=== PATIENT | male | born 1955 | race Caucasian/White ===

== ENCOUNTER 2017-07-04 00:53 | Inpatient (IN) | payer MEDICARE, BC ==
[2017-07-04] VITALS (8 sets, daily range): BP systolic 121–224; BP diastolic 74–107; PULSE 75–116; RESP 16–28; TEMP 97.7–97.9; O2SAT 94–97
[~2017-07-04] VITALS: Ht 172.7 cm; Wt 65.9 kg
--- NOTE | 2017-07-04 01:54 | PD ---
HPI Chief Complaint: Altered Mental Status Time Seen by Provider: 01:54 Travel History International Travel<30 days: No Contact w/Intl Traveler<30days: No Traveled to known affect area: No History of Present Illness HPI The patient is a 62 year old female who presents to the [facility] emergency department with a history of difficulty sleeping and eating with erratic behavior that began approximately a week ago. The patient is accompanied to this emergency department visit by his . His reports that he is never acted like this in the past. She reports that they live in [facility] on June 16 came down to [place] suddenly. She reports that at the beginning of the month he was diagnosed with bilateral pneumonia and treated with antibiotic and prednisone. She reports that he did complete the course of antibiotic and his cough has improved, however since then he continued to be on prednisone up until a week ago when he abruptly discontinued it. She reports that he stopped taking all of his medications 2 days ago. She reports that he has a history of emphysema, peripheral arterial disease, hypertension, and hyperlipidemia. She reports that he quit smoking presently 5 years ago. She denies having any family history of psychiatric disorder. Otherwise on review of systems, she denies him having any recent fevers, neck pain, chest pain, shortness of breath, abdominal pain, vomiting, diarrhea, urinary symptoms, one-sided weakness, slurred speech, facial droop, difficulty with word finding ability, or vision changes. She reports that he has had a decreased appetite. She reports that she's taken him to the emergency department in another city this past week. He was admitted overnight and then discharged the next day with a diagnosis of dizziness. The patient's privately reports that she is fearful for his safety. She reports that he has been aggressive. Security noticed the patient acting erratically. The patient has been having delusional and paranoid thoughts. Security witnessed the patient pushes and state "you are next". [facility] Past Medical History Narrative Medical The patient's past medical history is significant for peripheral arterial disease, hypertension, hyperlipidemia, COPD, arthritis, recent diagnosis of bilateral pneumonia the beginning of the year. Past Surgical History Narrative Surgical The patient's past surgical history is significant for left hip replacement, carpal tunnel release, bilateral carotid endarterectomy Social History Alcohol Use: No Tobacco Use: No Substance Use: No Allergies-Medications (Allergen,Severity, Reaction): Coded Allergies: No Known Allergies (Unverified , 07/04/17) Reported Meds & Prescriptions Reported Meds & Active Scripts Active Reported Cefuroxime (Cefuroxime Axetil) 500 Mg Tab 500 Mg PO BID Prednisone 10 Mg Tab 10 Mg PO DAILY Pravastatin 40 Mg Tab 40 Mg PO DAILY Plavix (Clopidogrel Bisulfate) 75 Mg Tab 75 Mg PO DAILY Montelukast (Montelukast Sodium) 4 Mg Chew 8 Mg CHEW HS Lisinopril 20 Mg Tab 20 Mg PO DAILY Atrovent HFA 12.9 GM Inh (Ipratropium [place]) 17 Mcg/Actuation Aer 2 Puff INH Q6HR PRN Perforomist Neb (Formoterol Fumarate) 20 Mcg/2 Ml Neb 1 Nebule INH BID Budesonide Neb 0.25 Mg/2 Ml Neb 0.25 Mg NEB DAILY NEB Review of Systems Except as stated in HPI: all other systems reviewed are Neg General / Constitutional: No: Fever Eyes: No: Visual changes HENT: No: Headaches, Neck Stiffness, Neck Pain Cardiovascular: No: Chest Pain or Discomfort Respiratory: No: Shortness of Breath Gastrointestinal: Positive: Loss of Appetite, No: Nausea, Vomiting, Diarrhea, Abdominal Pain Genitourinary: No: Dysuria Musculoskeletal: No: Myalgias, Pain Skin: No Rash Neurologic: Positive: Change in Mentation, No: Weakness, Focal Abnormalities, Slurred Speech, Sensory Disturbance Psychiatric: Positive: Disorder of Thought, Mood Disorder, No: Depression, Suicidal Ideations, Homicidal Ideation Endocrine: No: Polydipsia Hematologic/Lymphatic: No: Easy Bruising Physical Exam Narrative General: The patient is a well-developed well-nourished male in no acute distress. Head and Neck exam: Head is normocephalic atraumatic. Eyes: EOMI, pupils are equal round and reactive to light. Nose: Midline septum with pink mucous membranes Mouth: Dentition unremarkable. Moist mucus membranes. Posterior oropharynx is not erythematous. No tonsillar hypertrophy. Uvula midline. Airway patent. Neck: No palpable lymphadenopathy. No nuchal rigidity. No thyromegaly. Cardiovascular: Regular rate and rhythm without murmurs, gallops, or rubs. Lungs: Clear to auscultation bilaterally. No wheezes, rhonchi, or rales. Abdomen: Soft, without tenderness to palpation in all 4 quadrants of the abdomen. No guarding, rebound, or rigidity. Normal bowel sounds are audible. No tenderness on palpation of McBurney's point. Negative Titus's sign. Extremities: No clubbing, cyanosis, or edema. 2+ pulses in all 4 extremities. No calf tenderness on palpation. Back: No spinous process tenderness to palpation. No costovertebral angle tenderness to palpation. Neurologic Exam: Cranial nerves 2-12 were intact on exam. Strength is 5/5 in all 4 extremities. No sensory deficits noted. The patient has pressured speech, difficulty staying on track with the conversation with tangential conversations. Skin Exam: No rash noted. Intact skin that is warm and dry. Data Data Last Documented VS Vital Signs Date Time Temp Pulse Resp B/P (MAP) Pulse Ox O2 Delivery O2 Flow Rate FiO2 07/04/17 11:05 83 18 140/81 (100) 95 07/04/17 09:39 Room Air 07/04/17 00:54 97.9 Orders Orders Electrocardiogram (07/04/17 01:55) Complete Blood Count With Diff (07/04/17 01:55) Comprehensive Metabolic Panel (07/04/17 01:55) Creatine Kinase (Cpk) (07/04/17 01:55) Ckmb (Isoenzyme) Profile (07/04/17 01:55) Troponin I (07/04/17 01:55) Prothrombin Time / Inr (Pt) (07/04/17 01:55) Act Partial Throm Time (Ptt) (07/04/17 01:55) Lipase (07/04/17 01:55) Urinalysis - C+S If Indicated (07/04/17 01:55) Magnesium (Mg) (07/04/17 01:55) Ammonia (07/04/17 01:55) Chest, Single Ap (07/04/17 01:55) Ct Brain W/O Iv Contrast(Rout) (07/04/17 01:55) Iv Access Insert/Monitor (07/04/17 01:55) Ecg Monitoring (07/04/17 01:55) Oximetry (07/04/17 01:55) Drug Screen, Random Urine (07/04/17 01:55) Alcohol (Ethanol) (07/04/17 01:55) Salicylates (Aspirin) (07/04/17 01:55) Tylenol (Acetaminophen) (07/04/17 01:55) Sodium Chlor 0.9% 1000 Ml Inj (Ns 1000 M (07/04/17 03:30) Psych Screen (07/04/17 03:23) Labetalol Inj (Trandate Inj) (07/04/17 07:00) Lisinopril (Prinivil) (07/04/17 07:00) Lorazepam (Ativan) (07/04/17 09:15) Diet Regular Basic (07/04/17 Lunch) Diet Regular Basic (07/04/17 Dinner) Admit Order (Ed Use Only) (07/04/17 ) Admit To Inpatient Psych (07/04/17 ) Code Status (07/04/17 17:52) Vital Signs (Adult) REBEKA.Q12H.E (07/04/17 17:52) Activity Oob Ad Mini (07/04/17 17:52) Level Of Observation (Psych) (07/04/17 17:52) Acetaminophen (Tylenol) (07/04/17 18:00) Magnesium Hydroxide Liq (Milk Of Magnesi (07/04/17 18:00) Al-Mag Hy-Si 40-40-4 Mg/Ml Liq (Mag-Al P (07/04/17 18:00) Basic Metabolic Panel (Bmp) (07/05/17 06:00) Thyroid Stimulating Hormone (07/05/17 06:00) Lipid Profile (07/05/17 06:00) Hemoglobin (Hgb) A1c (07/05/17 06:00) Vitamin D, 25-Hydroxy (07/05/17 06:00) Vitamin B12 (07/05/17 06:00) Labs Laboratory Tests Test 07/04/17 02:16 07/04/17 02:41 White Blood Count 6.7 TH/MM3 Red Blood Count 4.05 MIL/MM3 Hemoglobin 14.3 GM/DL Hematocrit 40.4 % Mean Corpuscular Volume 99.7 FL Mean Corpuscular Hemoglobin 35.2 PG Mean Corpuscular Hemoglobin Concent 35.3 % Red Cell Distribution Width 14.5 % Platelet Count 251 TH/MM3 Mean Platelet Volume 6.7 FL Neutrophils (%) (Auto) 73.9 % Lymphocytes (%) (Auto) 13.4 % Monocytes (%) (Auto) 9.8 % Eosinophils (%) (Auto) 2.6 % Basophils (%) (Auto) 0.3 % Neutrophils # (Auto) 5.0 TH/MM3 Lymphocytes # (Auto) 0.9 TH/MM3 Monocytes # (Auto) 0.7 TH/MM3 Eosinophils # (Auto) 0.2 TH/MM3 Basophils # (Auto) 0.0 TH/MM3 CBC Comment DIFF FINAL Differential Comment Prothrombin Time 10.6 SEC Prothromb Time International Ratio 1.0 RATIO Activated Partial Thromboplast Time 24.7 SEC Blood Urea Nitrogen 14 MG/DL Creatinine 0.99 MG/DL Random Glucose 120 MG/DL Total Protein 7.4 GM/DL Albumin 3.8 GM/DL Calcium Level 9.0 MG/DL Magnesium Level 2.0 MG/DL Alkaline Phosphatase 60 U/L Aspartate Amino Transf (AST/SGOT) 16 U/L Alanine Aminotransferase (ALT/SGPT) 20 U/L Total Bilirubin 0.9 MG/DL Sodium Level 140 MEQ/L Potassium Level 3.9 MEQ/L Chloride Level 105 MEQ/L Carbon Dioxide Level 24.2 MEQ/L Anion Gap 11 MEQ/L Estimat Glomerular Filtration Rate 77 ML/MIN Ammonia 16 MCMOL/L Total Creatine Kinase 56 U/L Troponin I LESS THAN 0.02 NG/ML Lipase 112 U/L Salicylates Level LESS THAN 1.7 MG/DL Acetaminophen Level LESS THAN 2.0 MCG/ML Ethyl Alcohol Level LESS THAN 3 MG/DL Urine Color YELLOW Urine Turbidity CLEAR Urine pH 6.0 Urine Specific [place] 1.030 Urine Protein 30 mg/dL Urine Glucose (UA) NEG mg/dL Urine Ketones 40 mg/dL Urine Occult Blood NEG Urine Nitrite NEG Urine Bilirubin NEG Urine Urobilinogen 4.0 MG/DL Urine Leukocyte Esterase NEG Urine RBC 1 /hpf Urine WBC 2 /hpf Urine Hyaline Casts 34 /lpf Urine Granular Casts 3 /lpf Urine Mucus MANY /lpf Microscopic Urinalysis Comment CULT NOT INDICATED Urine Opiates Screen NEG Urine Barbiturates Screen NEG Urine Amphetamines Screen NEG Urine Benzodiazepines Screen NEG Urine Cocaine Screen NEG Urine Cannabinoids Screen POS MDM Medical Decision Making Medical Screen Exam Complete: Yes Emergency Medical Condition: Yes Interpretation(s) Last Impressions Head CT 07/04/17 0155 Signed Impressions: Service Date/Time: Tuesday, July 04, 2017 02:51 - CONCLUSION: 1. No acute intracranial abnormalities. Negrito Nation MD Chest X-Ray 07/04/17 0155 Signed Impressions: Service Date/Time: Tuesday, July 04, 2017 02:24 - CONCLUSION: 1. No focal consolidation or effusion. Calcified granuloma right lower lobe. Negrito Nation MD Differential Diagnosis Cata unmasked by prednisone use, versus other psychiatric disorder Narrative Course During the course of the patients emergency department visit, the patients history, examination, and differential diagnosis were reviewed with the patient. The patient was placed on a children's literature professor with oximetry and frequent blood pressure monitoring. The patient had IV access obtained and blood work sent for analysis. The patient had an EKG done on arrival that shows a sinus rhythm heart rate of 92, no acute ST segment elevation or depression. QRS duration is 70 ms, QTC 377 ms. The patient was initially provided labetalol 10 mg IV for persistent hypertension, started back on lisinopril 20 mg by mouth 1, his usual blood pressure medication. The patients laboratory studies were reviewed and remarkable for a white count of 6.7, hemoglobin 14.3, platelets 251 with 73.9 neutrophil, CMP is remarkable for glucose of 120, cardiac enzymes within normal limits, lipase 112, ammonia level XVI, PT 10.6, PTT 24.7, urinalysis shows 40 ketones otherwise unremarkable. Urine drug screen is positive for cannabinoids, salicylate less than 1.7, acetaminophen less than 2, alcohol level less than 3. Radiology studies were reviewed and remarkable for a chest x-ray that shows no focal consolidation or effusion, calcified granuloma right lower lobe of the lung. CT scan of the brain shows no acute intracranial abnormality. Due to the patient's condition acute psychosis with paranoid delusions and the patient's reporting concern for his and her safety, the patient was placed under a Salas act. The patient has been medically cleared for evaluation by the psychiatric screener and psychiatrist under a Salas act. Diagnosis Primary Impression: Acute psychosis Additional Impression: Paranoid delusion Chela Ellison MD Jul 04, 2017 01:54
[2017-07-04 02:28] LABS: BASOPHIL % 0.3 % (0.0-2.0); EOSINOPHIL # 0.2 TH/MM3 (0-0.4); EOSINOPHIL % 2.6 % (0.0-4.0); HEMATOCRIT 40.4 % (39.0-51.0); HEMOGLOBIN 14.3 GM/DL (13.0-17.0); LYMPH % 13.4 % (9.0-44.0); LYMPHOCYTE # 0.9 TH/MM3 (1.0-4.8); MEAN CELL VOLUME 99.7 FL (80.0-100.0); MEAN CORPUSCULAR HEMOGLOBIN 35.2 PG (27.0-34.0); MEAN CORPUSCULAR HGB CONC 35.3 % (32.0-36.0); MEAN PLATELET VOLUME 6.7 FL (7.0-11.0); MONO % 9.8 % (0.0-8.0); MONOCYTE # 0.7 TH/MM3 (0-0.9); NEUT % 73.9 % (16.0-70.0); PLATELET COUNT 251 TH/MM3 (150-450); RED BLOOD COUNT 4.05 MIL/MM3 (4.50-5.90); RED CELL DISTRIBUTION WIDTH 14.5 % (11.6-17.2); WHITE BLOOD COUNT 6.7 TH/MM3 (4.0-11.0)
[2017-07-04] MEDS ORDERED: BUDE0.25 NEB (02:31)
[2017-07-04] MEDS ORDERED: LISI-515 PO (02:37)
[2017-07-04] MEDS ORDERED: PRED10 PO (02:37)
[2017-07-04] MEDS ORDERED: PRAV40TA2 PO (02:37)
[2017-07-04] MEDS ORDERED: CEFU1TAB20 PO (02:37)
[2017-07-04] MEDS ORDERED: IPRA17I INH (02:37)
[2017-07-04] MEDS ORDERED: FORM20NE INH (02:37)
[2017-07-04] MEDS ORDERED: PLAV75TA29 PO (02:37)
[2017-07-04] MEDS ORDERED: MONT4CHW4 CHEW (02:37)
--- NOTE | 2017-07-04 02:40 | RADRPT ---
EXAM DATE/TIME: 07/04/2017 02:24 [facility] COMPARISON: No previous studies available for comparison. INDICATIONS : Short of breath. MEDICAL HISTORY : None. SURGICAL HISTORY : None. ENCOUNTER: Initial ACUITY: 1 day PAIN SCORE: 0/10 LOCATION: Bilateral chest FINDINGS: A single view of the chest demonstrates the lungs to be symmetrically aerated without evidence of mas s, infiltrate or effusion. The cardiomediastinal contours are unremarkable. Osseous structures are intact. CONCLUSION: 1. No focal consolidation or effusion. Calcified granuloma right lower lobe. Negrito Nation MD on July 04, 2017 at 2:38 Board Certified Radiologist. This report was verified electronically.
[2017-07-04 02:48] LABS: PROTHROMBIN TIME - PATIENT 10.6 SEC (9.8-11.6)
[2017-07-04 02:52] LABS: ALBUMIN 3.8 GM/DL (3.4-5.0); ALT (GPT) 20 U/L (12-78); AST (GOT) 16 U/L (15-37); BICARBONATE 24.2 MEQ/L (21.0-32.0); BLOOD UREA NITROGEN 14 MG/DL (7-18); CHLORIDE 105 MEQ/L (98-107); CREATININE 0.99 MG/DL (0.60-1.30); GLOMERULAR FILTRATION RATE 77 ML/MIN (>89); GLUCOSE,RANDOM 120 MG/DL (74-106); SODIUM (NA) 140 MEQ/L (136-145)
[2017-07-04 02:55] LABS: ACETAMINOPHEN LESS THAN 2.0 MCG/ML (10.0-30.0); ALKALINE PHOSPHATASE 60 U/L (45-117); TOTAL BILIRUBIN ADULT 0.9 MG/DL (0.2-1.0); TOTAL PROTEIN 7.4 GM/DL (6.4-8.2); TROPONIN I LESS THAN 0.02 NG/ML (0.02-0.05)
[2017-07-04 02:59] LABS: BILIRUBIN, URINE NEG (NEG); BLOOD, URINE NEG (NEG); GLUCOSE,URINE NEG (NEG); HYALINE CAST, URINE 34 /lpf (RARE); KETONE, URINE 40 mg/dL (NEG); MUCUS URINE MANY /lpf (OCC); NITRITE,URINE NEG (NEG); URINE COLOR YELLOW (YELLW/STRAW); URINE LEUKOCYTE ESTERASE NEG (NEG)
--- NOTE | 2017-07-04 03:08 | RADRPT ---
EXAM DATE/TIME: 07/04/2017 02:51 [facility] COMPARISON: No previous studies available for comparison. INDICATIONS : Altered mental status. RADIATION DOSE: 69.15 CTDIvol (mGy) MEDICAL HISTORY : Cardiovascular disease. SURGICAL HISTORY : Coronary artery stent. ENCOUNTER: Initial ACUITY: 1 day PAIN SCALE: 0/10 LOCATION: cranial TECHNIQUE: Multiple contiguous axial images were obtained of the head. Using automated exposure control and adj ustment of the mA and/or kV according to patient size, radiation dose was kept as low as reasonably a chievable to obtain optimal diagnostic quality images. DICOM format image data is available electro nically for review and comparison. FINDINGS: CEREBRUM: The ventricles are normal for age. No evidence of midline shift, mass lesion, hemorrhage or acute in farction. No extra-axial fluid collections are seen. POSTERIOR FOSSA: The cerebellum and brainstem are intact. The 4th ventricle is midline. The cerebellopontine angle i s unremarkable. EXTRACRANIAL: The visualized portion of the orbits is intact. SKULL: The calvaria is intact. No evidence of skull fracture. CONCLUSION: 1. No acute intracranial abnormalities. Negrito Nation MD on July 04, 2017 at 3:05 Board Certified Radiologist. This report was verified electronically.
[2017-07-04] MEDS ORDERED: SODIUM CHLOR 0.9% 1000 ML INJ 1,000 ML IV ONE (03:30)
[2017-07-04] MEDS ORDERED: LABETALOL HCL 100 MG/20 ML VIAL IV PUSH ONE (07:00)
[2017-07-04] MEDS ORDERED: LISINOPRIL 20 MG TAB PO ONE (07:00)
[2017-07-04] MEDS ORDERED: LORazepam 1 MG TAB PO ONE (09:15)
--- NOTE | 2017-07-04 17:58 | PD ---
History of Present Illness Chief Complaint: Altered Mental Status Time Seen by Provider: 16:20 Travel History International Travel<30 Days: No Contact w/Intl Traveler<30days: No Known affected area: No Legal Status Legal Status: Involuntary Salas Act Signed By: Raeann MORALES Salas Act Comment: CERTIFICATE OF PROFESSIONAL INITIATING INVOLUNTARY EXAMINATION07/04/17@0315 History of Present Illness: History of Present Illness HPI The patient is a 62 year old male with no previous psychiatric history who presents to the [facility] emergency present psychiatric evaluation accompanied by his who reports that the patient has had little to no sleep in the past 4 day, not eating eating as well as behaving in erratic manner for approximately 1 week. His reports that he is never acted like this in the past. He was diagnosed with bilateral pneumonia and treated with antibiotic and prednisone at the beginning of the month and continued to be on prednisone up until a week ago when he abruptly discontinued it. She reports that he stopped taking all of his medications 2 days ago.He was seen at another the emergency department in another city this past week and was admitted overnight and then discharged the next day with a diagnosis of dizziness. The patient's privately reports that she is fearful for his safety. She reports that he has been aggressive towards her. As per ED documentation security noticed the patient acting erratically and witnessed the patient push his and state "you are next". EMR is reviewed. No previous contact with [facility] psychiatry. Current toxicology is positive for cannabinoids. The patient is seen in J pod with Louis complex case manager. He is alert and oriented male who [facility] with appropriate hygiene and grooming. He is hyperverbal with rapid speech and circumstantiality. He denies feeling depressed. His affect is labile and he starts crying during our interview. He denies suicidal or homicidal ideation and denies any hallucinations. I contacted his son at [phone]. The son is concerned over his father's safety as well as the safety of his mother he is also worried since this presents such a change in behavior for his dad. The son states that the dad has not slept in 4 nights and that yesterday he was gone 14 hours after he left the house and went to the car wash but he came back and had not in fact washes car and provided no explanation of where he had been. He also states that when he spoke with him on the phone he had extremely fast and pressured speech to the point that it was almost incomprehensible. The son would like to be involved in his care and is ready to drive down from [place] to provide support to his father. I PFSH Past Medical History Cardiovascular Problems: Yes (PAD) High Cholesterol: Yes Diabetes: No Patient Takes Glucophage: No Diminished Hearing: Yes ([place]) Hypertension: Yes Respiratory: Yes (EMPHYSEMA) Pneumonia: Yes Tetanus Vaccination: > 5 Years Influenza Vaccination: No Past Surgical History Abdominal Surgery: Yes (1 STENT) Cardiac Surgery: Yes (STENTS X5, CARROTID X2) Joint Replacement: Yes (LEFT COMPLETE HIP) Other Surgery: Yes (CARPEL TUNNEL) Psychiatric History Psychiatric History Hx Psychiatric Treatment: NONE History of Inpatient Treatment: No Guns or firearms in home: No Social History Hx Alcohol Use: No Hx Tobacco Use: No Hx Substance Use: No Hx of Substance Use Treatment: No Family Psychiatric History Patient is from [place] and is here on vacation. He has been for 40 years. He has a GED education. He worked in heavy equipment machinery. Allergies-Medications (Allergen,Severity, Reaction): Coded Allergies: No Known Allergies (Unverified , 07/04/17) Reported Meds & Prescriptions Reported Meds & Active Scripts Active Reported Cefuroxime (Cefuroxime Axetil) 500 Mg Tab 500 Mg PO BID Prednisone 10 Mg Tab 10 Mg PO DAILY Pravastatin 40 Mg Tab 40 Mg PO DAILY Plavix (Clopidogrel Bisulfate) 75 Mg Tab 75 Mg PO DAILY Montelukast (Montelukast Sodium) 4 Mg Chew 8 Mg CHEW HS Lisinopril 20 Mg Tab 20 Mg PO DAILY Atrovent HFA 12.9 GM Inh (Ipratropium [place]) 17 Mcg/Actuation Aer 2 Puff INH Q6HR PRN Perforomist Neb (Formoterol Fumarate) 20 Mcg/2 Ml Neb 1 Nebule INH BID Budesonide Neb 0.25 Mg/2 Ml Neb 0.25 Mg NEB DAILY NEB Review of Systems Psychiatric: COMPLAINS OF: Mood changes Except as stated in HPI: all other systems reviewed are Neg Mental Status Examination Appearance: Appropriate Consciousness: Alert Orientation: x4 Motor Activity: Normal gait Speech: Rapid Language: Adequate Fund of Knowledge: Adequate Attention and Concentration: Easily Distracted Memory: Unremarkable Mood: Other (labile) Affect: Labile Thought Process & Associations: Intact, Circumstantial Thought Content: Appropriate Hallucination Type: None Delusion Type: None Suicidal Ideation: No Suicidal Plan: No Suicidal Intention: No Homicidal Ideation: No Homicidal Plan: No Homicidal Intention: No Insight: Poor Judgment: Impulsive MDM Medical Decision Making Medical Record Reviewed: Yes Assessment/Plan 62-year-old male with no previous psychiatric history who presents to the ED for psychiatric evaluation with August changed in behavior including not sleeping 4 days, change in appetite, aggressive behavior towards , and acting erratically, leaving the house for 14 hours without explanation of 4 he has been. The patient family report that he was treated at the beginning of the month for a pneumonia and was on antibiotics as well as on steroids. He stopped taking the steroids approximately a week ago. He was treated and at other hospital for similar presentation and was discharged after 24 hours. The patient is positive for cannabinoids and the son tells me that he takes edible medical marijuana. While in the ED it is reported that staff have observed him acting erratically as well as having pushed his . The patient's family voiced their concerns for his safety as well as the safety of his . At this time the patient will be admitted for further observation for safety and for stabilization. Will check Thyroid functioning. Orders Orders Electrocardiogram (07/04/17 01:55) Complete Blood Count With Diff (07/04/17 01:55) Comprehensive Metabolic Panel (07/04/17 01:55) Creatine Kinase (Cpk) (07/04/17 01:55) Ckmb (Isoenzyme) Profile (07/04/17 01:55) Troponin I (07/04/17 01:55) Prothrombin Time / Inr (Pt) (07/04/17 01:55) Act Partial Throm Time (Ptt) (07/04/17 01:55) Lipase (07/04/17 01:55) Urinalysis - C+S If Indicated (07/04/17 01:55) Magnesium (Mg) (07/04/17 01:55) Ammonia (07/04/17 01:55) Chest, Single Ap (07/04/17 01:55) Ct Brain W/O Iv Contrast(Rout) (07/04/17 01:55) Iv Access Insert/Monitor (07/04/17 01:55) Ecg Monitoring (07/04/17 01:55) Oximetry (07/04/17 01:55) Drug Screen, Random Urine (07/04/17 01:55) Alcohol (Ethanol) (07/04/17 01:55) Salicylates (Aspirin) (07/04/17 01:55) Tylenol (Acetaminophen) (07/04/17 01:55) Sodium Chlor 0.9% 1000 Ml Inj (Ns 1000 M (07/04/17 03:30) Psych Screen (07/04/17 03:23) Labetalol Inj (Trandate Inj) (07/04/17 07:00) Lisinopril (Prinivil) (07/04/17 07:00) Lorazepam (Ativan) (07/04/17 09:15) Diet Regular Basic (07/04/17 Lunch) Results Vital Signs Date Time Temp Pulse Resp B/P (MAP) Pulse Ox O2 Delivery O2 Flow Rate FiO2 07/04/17 11:05 83 18 140/81 (100) 95 07/04/17 09:39 88 18 174/95 (121) 97 Room Air 07/04/17 07:56 75 205/100 (135) 07/04/17 07:35 88 28 224/107 (146) 94 Room Air 07/04/17 06:33 96 18 199/91 (127) 94 Room Air 07/04/17 02:27 99 22 152/102 (119) 95 Nasal Cannula 07/04/17 00:54 97.9 116 206/88 (127) 95 Room Air Laboratory Tests Test 07/04/17 02:16 07/04/17 02:41 White Blood Count 6.7 Red Blood Count 4.05 Hemoglobin 14.3 Hematocrit 40.4 Mean Corpuscular Volume 99.7 Mean Corpuscular Hemoglobin 35.2 Mean Corpuscular Hemoglobin Concent 35.3 Red Cell Distribution Width 14.5 Platelet Count 251 Mean Platelet Volume 6.7 Neutrophils (%) (Auto) 73.9 Lymphocytes (%) (Auto) 13.4 Monocytes (%) (Auto) 9.8 Eosinophils (%) (Auto) 2.6 Basophils (%) (Auto) 0.3 Neutrophils # (Auto) 5.0 Lymphocytes # (Auto) 0.9 Monocytes # (Auto) 0.7 Eosinophils # (Auto) 0.2 Basophils # (Auto) 0.0 CBC Comment DIFF FINAL Differential Comment Prothrombin Time 10.6 Prothromb Time International Ratio 1.0 Activated Partial Thromboplast Time 24.7 Blood Urea Nitrogen 14 Creatinine 0.99 Random Glucose 120 Total Protein 7.4 Albumin 3.8 Calcium Level 9.0 Magnesium Level 2.0 Alkaline Phosphatase 60 Aspartate Amino Transf (AST/SGOT) 16 Alanine Aminotransferase (ALT/SGPT) 20 Total Bilirubin 0.9 Sodium Level 140 Potassium Level 3.9 Chloride Level 105 Carbon Dioxide Level 24.2 Anion Gap 11 Estimat Glomerular Filtration Rate 77 Ammonia 16 Total Creatine Kinase 56 Troponin I LESS THAN 0.02 Lipase 112 Salicylates Level LESS THAN 1.7 Acetaminophen Level LESS THAN 2.0 Ethyl Alcohol Level LESS THAN 3 Urine Color YELLOW Urine Turbidity CLEAR Urine pH 6.0 Urine Specific [place] 1.030 Urine Protein 30 Urine Glucose (UA) NEG Urine Ketones 40 Urine Occult Blood NEG Urine Nitrite NEG Urine Bilirubin NEG Urine Urobilinogen 4.0 Urine Leukocyte Esterase NEG Urine RBC 1 Urine WBC 2 Urine Hyaline Casts 34 Urine Granular Casts 3 Urine Mucus MANY Microscopic Urinalysis Comment CULT NOT INDICATED Urine Opiates Screen NEG Urine Barbiturates Screen NEG Urine Amphetamines Screen NEG Urine Benzodiazepines Screen NEG Urine Cocaine Screen NEG Urine Cannabinoids Screen POS Diagnosis Primary Impression: unspecified bipolar disorder Admitting Information Admitting Physician Requests: Admit Samia Rivera RETAIL WIRELESS ASSOCIATE Jul 04, 2017 17:58
[2017-07-04] MEDS ORDERED: MAGNESIUM HYDROXIDE SUSP 30 ML CUP PO PRN (18:00)
[2017-07-04] MEDS ORDERED: ACETAMINOPHEN 325 MG TAB PO PRN (18:00)
[2017-07-04] MEDS ORDERED: ALUMINUM/MAGNESIUM/SIMETH 30 ML CUP PO PRN (18:00)
--- NOTE | 2017-07-05 00:37 | EKG ---
Date Performed: 07/04/2017 Time Performed: 02:19:15 PTAGE: 62 years EKG: Sinus rhythm NORMAL ECG NO PREVIOUS TRACING DOCTOR: Chad Peterson Interpretating Date/Time 07/05/2017 00:35:49
[2017-07-05 05:30] VITALS: BP 165/90; PULSE 81; RESP 17; TEMP 97.2; O2SAT 94
[2017-07-05 07:11] LABS: BICARBONATE 28.1 MEQ/L (21.0-32.0); BLOOD UREA NITROGEN 8 MG/DL (7-18); CHLORIDE 106 MEQ/L (98-107); CREATININE 0.77 MG/DL (0.60-1.30); GLOMERULAR FILTRATION RATE 102 ML/MIN (>89); GLUCOSE,RANDOM 88 MG/DL (74-106); SODIUM (NA) 139 MEQ/L (136-145)
[2017-07-05 07:12] LABS: CHOLESTEROL 121 MG/DL (120-200); TRIGLYCERIDES 64 MG/DL (42-150)
[2017-07-05 07:37] LABS: CHOLESTEROL/ HDL RATIO 2.04 RATIO; HDL CHOLESTEROL 59.2 MG/DL (40.0-60.0); LDL CHOLESTEROL 49 MG/DL (0-99)
[2017-07-05] MEDS: PRAVASTATIN SOD 40 MG TAB PO SCH (09:03)
[2017-07-05] MEDS: CLOPIDOGREL 75 MG TAB PO SCH (09:03)
[2017-07-05] MEDS: LISINOPRIL 20 MG TAB PO SCH (09:03)
[2017-07-05] MEDS: QUEtiapine FUMARATE 25 MG TAB PO SCH ×2 (09:20→21:22)
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
[2017-07-05] MEDS ORDERED: PERFOROMIST INH SCH (12:15)
--- NOTE | 2017-07-05 12:21 | PD.CONS ---
HPI Service [facility] Hospitalists Consult Requested By Dr. Silveira Reason for Consult Medical management Primary Care Physician Unknown Diagnoses: (1) Brief psychotic disorder (2) COPD (chronic obstructive pulmonary disease) with emphysema (3) Hypertension (4) PAD (peripheral artery disease) (5) Hyperlipidemia History of Present Illness 62-year-old male with a medical history significant for COPD, hypertension, PAD , hyperlipidemia who presented to the hospital with erratic behavior and difficulty sleeping for the past week. The patient was brought in by his who noted he has been acting strangely. He was recently diagnosed with pneumonia earlier this month and has been treated with antibiotics and steroids. He completed all of his medications about 2 days prior to presentation. The patient is admitted to the med psych unit for brief psychotic disorder. Hospitalist service consulted for medical management. He reported mild shortness of breath and requested a breathing treatment. He reports that he normally takes Symbicort twice a day and nebulized albuterol treatment as needed. There has been no change in his other chronic medical conditions. Available records extensively reviewed with the patient. It is worth noting is a poor historian and is tangential. Past Family Social History Allergies: Coded Allergies: No Known Allergies (Unverified , 07/04/17) Past Medical History COPD, hypertension, PAD, hyperlipidemia Past Surgical History Left hip arthroplasty Carpal tunnel release Bilateral carotid endarterectomy Family History Discussed and found to be noncontributory. Social History Quit using tobacco about 5 years ago. Admits to marijuana use. Alcohol rarely. Physical Exam Vital Signs Vital Signs Date Time Temp Pulse Resp B/P (MAP) Pulse Ox O2 Delivery O2 Flow Rate FiO2 07/05/17 05:30 97.2 81 17 165/90 (115) 94 07/04/17 19:51 97.7 90 16 121/74 (90) 94 07/04/17 19:01 Physical Exam GENERAL: This is a well-nourished, well-developed patient, in no apparent distress. Pressure speech and racing thoughts. SKIN: No rashes, ecchymoses or lesions. Cool and dry. HEAD: Atraumatic. Normocephalic. No temporal or scalp tenderness. EYES: Pupils equal round and reactive. Extraocular motions intact. No scleral icterus. No injection or drainage. ENT: Nose without drainage. Throat without erythema, tonsillar hypertrophy or exudate. Uvula midline. Airway patent. NECK: Trachea midline. No JVD or lymphadenopathy. Supple, nontender, no meningeal signs. CARDIOVASCULAR: Regular rate and rhythm without murmurs, gallops, or rubs. RESPIRATORY: Clear to auscultation. Breath sounds equal bilaterally. No wheezes , rales, or rhonchi. GASTROINTESTINAL: Abdomen soft, non-tender, nondistended. No hepato-splenomegaly , or palpable masses. No guarding. MUSCULOSKELETAL: Extremities without clubbing, cyanosis, or edema. No joint tenderness, effusion, or edema noted. No calf tenderness. Negative Homans sign bilaterally. NEUROLOGICAL: Awake and alert. Cranial nerves II through XII intact. Motor and sensory grossly within normal limits. Five out of 5 muscle strength in all muscle groups. Normal speech. Laboratory Laboratory Tests Test 07/05/17 06:23 Blood Urea Nitrogen 8 Creatinine 0.77 Random Glucose 88 Calcium Level 9.0 Sodium Level 139 Potassium Level 3.9 Chloride Level 106 Carbon Dioxide Level 28.1 Anion Gap 5 Estimat Glomerular Filtration Rate 102 Triglycerides Level 64 Cholesterol Level 121 LDL Cholesterol 49 HDL Cholesterol 59.2 Cholesterol/HDL Ratio 2.04 Vitamin B12 Level 301 25-Hydroxy Vitamin D Total 9.7 Thyroid Stimulating Hormone 3rd Gen 0.937 Result Diagram: 07/04/17 0216 07/05/17 0623 Imaging Last Impressions Head CT 07/04/17154 Signed Impressions: Service Date/Time: Tuesday, July 04, 2017 02:51 - CONCLUSION: 1. No acute intracranial abnormalities. Negrito Nation MD Chest X-Ray 07/04/17154 Signed Impressions: Service Date/Time: Tuesday, July 04, 2017 02:24 - CONCLUSION: 1. No focal consolidation or effusion. Calcified granuloma right lower lobe. Negrito Nation MD Assessment and Plan Problem List: (1) Brief psychotic disorder ICD Code: F23 - Brief psychotic disorder (2) COPD (chronic obstructive pulmonary disease) with emphysema ICD Code: J43.9 - Emphysema, unspecified (3) PAD (peripheral artery disease) ICD Code: I73.9 - Peripheral vascular disease, unspecified (4) Hypertension ICD Code: I10 - Essential (primary) hypertension (5) Hyperlipidemia ICD Code: E78.5 - Hyperlipidemia, unspecified Assessment and Plan 62-year-old male admitted to the psychiatric unit for bizarre behavior, aggression toward , paranoia along with some manic-like symptoms. Hospitalist service following for medical management of COPD, hypertension, and peripheral vascular disease. Brief psychotic disorder: - Plan per psychiatry COPD with emphysema/recent pneumonia: No exacerbation. Chest x-ray personally reviewed. Calcified granuloma but no acute disease. Patient recently completed treatment for pneumonia. Appear to be stable from respiratory standpoint. - Resume Symbicort - Duo nebs treatment as needed Peripheral artery disease: - Continue Plavix and statin Hypertension: - Continue lisinopril DVT PPx: Ambulation Joanie Ellis MD Jul 05, 2017 12:21
[2017-07-05 16:12] LABS: HEMOGLOBIN A1C 5.6 % (4.3-6.0)
[2017-07-05 18:03] VITALS: BP 153/86; PULSE 100; RESP 16; TEMP 97.7; O2SAT 96
[2017-07-06 06:13] VITALS: BP 145/89; PULSE 99; RESP 20; TEMP 98; O2SAT 95
[2017-07-06] MEDS ORDERED: OLANZapine IM 10 MG VIAL IM ONE (07:30)
[2017-07-06] MEDS: QUEtiapine FUMARATE 25 MG TAB PO SCH (08:10)
[2017-07-06] MEDS: CLOPIDOGREL 75 MG TAB PO SCH (08:10)
[2017-07-06] MEDS: LISINOPRIL 20 MG TAB PO SCH (08:10)
[2017-07-06] MEDS: PRAVASTATIN SOD 40 MG TAB PO SCH (08:10)
--- NOTE | 2017-07-06 10:49 | HHI.PYPN ---
Subjective Remarks Patient seen for follow-up, chart reviewed. Discussion she staff reported that patient had become confused and agitated last evening and wasn't be somewhat threatening which patient almost required ETO. Patient also noted to be grandiose stated he knows a millionaire and was going to buy had a lack, as well as delusional about his cheating and impulsive decision making such as wanting to divorce her. Patient was found lying on the unit making multiple phone calls. Patient states that he would like to be discharged. Patient continues with very poor insight into reasons why he was hospitalized at his current symptomatology. Patient continues with grandiose and bizarre delusions noted to be having manic like behavior with confusion and labile mood. Legal processes to the patient and is aware that headline writer will petition for involuntary hospitalization due to concern for patient unable to care for self adequately due to symptomatology as well as recent report of aggressive behavior with . Review of Systems Except as stated in HPI: all other systems reviewed are Neg Mental Status Examination Appearance: Appropriate Consciousness: Alert Orientation: x4 Motor Activity: Normal gait Speech: Pressured Language: Adequate Fund of Knowledge: Adequate Attention and Concentration: Easily Distracted Memory: Unremarkable Mood: Irritable Affect: Labile Thought Process & Associations: Intact, Tangential Thought Content: Bizarre thinking Hallucination Type: None Delusion Type: Bizarre, Paranoid, Other Suicidal Ideation: No Suicidal Plan: No Suicidal Intention: No Homicidal Ideation: No Homicidal Plan: No Homicidal Intention: No Insight: Poor Judgment: Poor Results Vitals/IOs Vital Signs Date Time Temp Pulse Resp B/P (MAP) Pulse Ox O2 Delivery O2 Flow Rate FiO2 07/06/17 06:13 98.0 99 20 145/89 (107) 95 07/04/17 09:39 Room Air Intake and Output 07/06/17 07/06/17 07/07/17 08:00 16:00 00:00 Intake Total 240 ml 480 ml Balance 240 ml 480 ml Assessment & Plan Problem List: (1) Brief psychotic disorder ICD Codes: F23 - Brief psychotic disorder Assessment & Plan Patient at this time continues with manic symptoms as well as grandiose and bizarre delusions. Patient requesting discharge and due to patient's current presentation is unable to decide that hospitalization is necessary and headline writer will start petition for involuntary hospitalization and requesting an opinion. We'll increase quetiapine to 25 mg a.m. and 75 mg at bedtime for mood stabilization. We'll continue to monitor mood and behavior. Collateral information pending. Discharge planning in progress Justification for Cont. Inpt. At risk for further decompensation if at lower level of care Discharge Planning Back to his residence when psychiatrically stable. Felipe Silveira MD Jul 06, 2017 10:49
--- NOTE | 2017-07-06 11:34 | HHI.PR ---
Subjective Remarks in no distress. denies pain. no new complaints. Objective Vitals Vital Signs Date Time Temp Pulse Resp B/P (MAP) Pulse Ox O2 Delivery O2 Flow Rate FiO2 07/06/17 06:13 98.0 99 20 145/89 (107) 95 07/05/17 18:03 97.7 100 16 153/86 (108) 96 I/O 07/05/17 07/05/17 07/05/17 07/06/17 07/06/17 07/06/17 07:00 15:00 23:00 07:00 15:00 23:00 Intake Total 480 ml 840 ml 240 ml 480 ml Balance 480 ml 840 ml 240 ml 480 ml Intake Oral 480 ml 840 ml 240 ml 480 ml # Voids 1 2 Result Diagram: 07/04/17 0216 07/05/17622 Imaging Last Impressions Head CT 07/04/17154 Signed Impressions: Service Date/Time: Tuesday, July 04, 2017 02:51 - CONCLUSION: 1. No acute intracranial abnormalities. Negrito Nation MD Chest X-Ray 07/04/17154 Signed Impressions: Service Date/Time: Tuesday, July 04, 2017 02:24 - CONCLUSION: 1. No focal consolidation or effusion. Calcified granuloma right lower lobe. Negrito Nation MD Objective Remarks GENERAL: This is a well-nourished, well-developed patient, in no apparent distress. CARDIOVASCULAR: Regular rate and regular rhythm without murmurs, gallops, or rubs. RESPIRATORY: Clear to auscultation. Breath sounds equal bilaterally. No wheezes , rales, or rhonchi. GASTROINTESTINAL: Abdomen soft, non-tender, nondistended. Normal, active bowel sounds MUSCULOSKELETAL: Extremities without clubbing, cyanosis, or edema. NEURO: Awake and alert. Medications and IVs Inpatient Medications Acetaminophen (Tylenol) 650 mg Q4H PRN PO Pain 1-5 or Temp >101F; Start at 18:00 Al Hydrox/Mg Hydrox/Simethicone (Mag-Al Plus Susp Liq) 30 ml Q6H PRN PO DYSPEPSIA; Start 07/04/17 at 18:00 Albuterol/ Ipratropium (Duoneb Neb) 1 ampule Q4HR NEB PRN NEB SOB/WHEEZING; Start 07/05/17 at 10:00 Clopidogrel Bisulfate (Plavix) 75 mg DAILY PO Last administered on 07/06/17at 08: 10; Start 07/05/17 at 09:00 Labetalol HCl (Trandate Inj) 10 mg ONCE ONCE IV PUSH Last administered on 07/04at 07:33; Start 07/04/17 at 07:00; Stop 07/04/17 at 07:01; Status DC Lisinopril (Prinivil) 20 mg DAILY PO Last administered on 07/06/17at 08:10; Start 07/05/17 at 09:00 Lorazepam (Ativan) 1 mg ONCE ONCE PO Last administered on 07/04/17at 09:21; Start 07/04/17 at 09:15; Stop 07/04/17 at 09:16; Status DC Magnesium Hydroxide (Milk Of Magnesia Liq) 30 ml DAILY PRN PO CONSTIPATION; Start 07/04/17 at 18:00 Olanzapine (ZyPREXA INJ) 10 mg ONCE ONCE IM ; Start 07/06/17 at 07:30; Stop 07/06 at 07:31; Status DC Patient Own Medication PT OWN MED: PERFOROMIST (FORMOTEROL)... BID INH ; Start 07/05/17 at 12:15; Stop 07/05/17 at 12:15; Status DC Pravastatin Sodium (Pravachol) 40 mg DAILY PO Last administered on 07/06/17at 08: 10; Start 07/05/17 at 09:00 Quetiapine Fumarate (SEROquel) 75 mg HS PO ; Start 07/06/17 at 21:00 Sodium Chloride 1,000 ml @ 1,000 mls/hr Q1H ONCE IV Last administered on at 03:28; Start 07/04/17 at 03:30; Stop 07/04/17 at 04:29; Status DC A/P Problem List: (1) Brief psychotic disorder ICD Code: F23 - Brief psychotic disorder (2) COPD (chronic obstructive pulmonary disease) with emphysema ICD Code: J43.9 - Emphysema, unspecified (3) PAD (peripheral artery disease) ICD Code: I73.9 - Peripheral vascular disease, unspecified (4) Hypertension ICD Code: I10 - Essential (primary) hypertension (5) Hyperlipidemia ICD Code: E78.5 - Hyperlipidemia, unspecified Assessment and Plan Brief psychotic disorder: - Plan per psychiatry COPD with emphysema/recent pneumonia: No exacerbation. Chest x-ray personally reviewed. Calcified granuloma but no acute disease. Patient recently completed treatment for pneumonia. Appear to be stable from respiratory standpoint. - Resumed Symbicort - Duo nebs treatment as needed Peripheral artery disease: - Continue Plavix and statin Hypertension: - Continue lisinopril DVT PPx: Ambulation Ramon Lyman MD Jul 06, 2017 11:34
--- NOTE | 2017-07-06 11:35 | PD.PSY.CON ---
Provisional Diagnosis Admission Date Jul 04, 2017 at 17:56 [place]. Brief psychotic disorder History of Present Illness Service Psychiatry Consult Requested By Dr. Silveira Reason for Consult Second opinion Primary Care Physician Unknown HPI Patient is a 62-year-old man, , domiciled with , retired, with no formal past psychiatric history, substance use history significant for marijuana use daily (irritable), was in a vacant past medical history of emphysema, peripheral artery disease, hypertension, hyperlipidemia, recent bilateral pneumonia was brought into the ED due to erratic behavior, decreased sleep and nutritional intake for past 1 week along with paranoid ideations, delusional and aggression toward in the context of recent treatment with prednisone for pneumonia which patient was admitted to the inpatient psychiatry unit for further evaluation and management. Patient was found lying in hospital bed noted to be tearful during interview some what tangential. Patient states that he had pneumonia prior to his hospitalization was on prednisone along with "sleeping pills" which she stopped 56 days ago but had been on this medication for some time but was unable to recall the name. Patient states that recently he has not been able to sleep ever since stopping the sleeping medications noted that his energy level has been "high" with no change in appetite, endorsing having had racing thoughts, and that he was " going too fast". Patient denies having pushed his yesterday as noted in the ED note, denies feeling paranoid denying any perceptual disturbances at this time. Patient noted to be somewhat labile with frequent episodes of crying when speaking about his children and perseverative on worrying about them. Patient was able to give more detailed due to his recent change in behavior. Patient at this time reports feeling "better" and that his energy has been less today. The patient is a 63 years old man, , domicile with in [place], patient denies previous psychiatric history, no previous psychiatric hospitalizations, no previous suicidal attempts, cannabis use disorder, he has a medical history of COPD, hypertension, hyperlipidemia, was recently admitted due to bilateral pneumonia and was discharged in his steroids and also antibiotics. Patient was admitted to psychiatry due to disorganized and psychotic behavior. Consulted to me for second opinion. On psychiatric evaluation I find the patient talking by phone having an argument with somebody about "legal issues". He is very irritable, stating that he has multiple millionaires friends that can assist him. He reports that there is no reason to retain him on the [place] act. Patient is disorganized, talkative, at times pressured and difficult to redirect. He has been intrusive in the unit, kind of restless, but no aggressive behavior displayed. Patient has been compliant with medications, no cynical side effects reported. He is completely oriented 3. Review of Systems Except as stated in HPI: all other systems reviewed are Neg Past Family Social History Coded Allergies: No Known Allergies (Unverified , 07/04/17) Reported Medications Cefuroxime (Cefuroxime) 500 Mg Tab, 500 MG PO BID for Infection, TAB 0 Refills 07/04/17 Prednisone (Prednisone) 10 Mg Tab, 10 MG PO DAILY, TAB 0 Refills 07/04/17 Pravastatin (Pravastatin) 40 Mg Tab, 40 MG PO DAILY for Cholesterol Management, #30 TAB 0 Refills 07/04/17 Clopidogrel (Plavix) 75 Mg Tab, 75 MG PO DAILY for Blood Clot Prevention, #30 TAB 0 Refills 07/04/17 Montelukast (Montelukast) 4 Mg Chew, 8 MG CHEW HS, #30 TAB 0 Refills 07/04/17 Lisinopril (Lisinopril) 20 Mg Tab, 20 MG PO DAILY, #30 TAB 0 Refills 07/04/17 Ipratropium HFA 12.9 GM Inh (Atrovent HFA 12.9 GM Inh) 17 Mcg/Actuation Aer, 2 PUFF INH Q6HR Y for SHORTNESS OF BREATH, #1 INHALER 0 Refills 07/04/17 Formoterol Neb (Perforomist Neb) 20 Mcg/2 Ml Neb, 1 NEBULE INH BID for COPD, # 60 NEBULE 0 Refills 07/04/17 Budesonide Neb (Budesonide Neb) 0.25 Mg/2 Ml Neb, 0.25 MG NEB DAILY NEB for Breathing Treatment, #30 NEBULE 0 Refills 07/04/17 Current Medications Medications (Trade) Dose Ordered Sig/Lizette Route Start Time Stop Time Status Last Admin (Tylenol) 650 mg Q4H PRN PO 07/04/17 18:00 (Milk Of Magnesia Liq) 30 ml DAILY PRN PO 07/04/17 18:00 (Mag-Al Plus Susp Liq) 30 ml Q6H PRN PO 07/04/17 18:00 (Plavix) 75 mg DAILY PO 07/05/17 09:00 07/06/17 08:10 (Prinivil) 20 mg DAILY PO 07/05/17 09:00 07/06/17 08:10 (Pravachol) 40 mg DAILY PO 07/05/17 09:00 07/06/17 08:10 (Duoneb Neb) 1 ampule Q4HR NEB PRN NEB 07/05/17 10:00 (SEROquel) 25 mg DAILY PO 07/07/17 09:00 (SEROquel) 75 mg HS PO 07/06/17 21:00 Patient's Strengths (min. 2) Verbal and communicative Physical Exam Vital Signs Vital Signs Date Time Temp Pulse Resp B/P (MAP) Pulse Ox O2 Delivery O2 Flow Rate FiO2 07/06/17 06:13 98.0 99 20 145/89 (107) 95 07/04/17 09:39 Room Air I/O 07/06/17 07/06/17 07/07/17 08:00 16:00 00:00 Intake Total 240 ml 480 ml Balance 240 ml 480 ml Mental Status Examination Appearance: Appropriate Consciousness: Alert Orientation: x4 Motor Activity: Normal gait Speech: Pressured Language: Adequate Fund of Knowledge: Adequate Attention and Concentration: Easily Distracted Memory: Unremarkable Mood: Irritable Affect: Labile Thought Process & Associations: Intact, Tangential Thought Content: Bizarre thinking Hallucination Type: None Delusion Type: Bizarre, Paranoid, Other Suicidal Ideation: No Suicidal Plan: No Suicidal Intention: No Homicidal Ideation: No Homicidal Plan: No Homicidal Intention: No Insight: Poor Judgment: Poor Assessment & Plan Problem List: (1) Brief psychotic disorder ICD Codes: F23 - Brief psychotic disorder Assessment & Plan: I have seen and examined this patient for psychiatric evaluation of second opinion. Documentation reviewed. I agree and concur with Dr. Silveira assessment and plan. Assessment & Plan Estimated LOS: Galileo Toscano MD Jul 06, 2017 11:35
[2017-07-06 18:05] VITALS: BP 121/65; PULSE 85; RESP 18; TEMP 98.2; O2SAT 96
[2017-07-06 20:15] VITALS: BP 71/40
[2017-07-06 20:45] VITALS: O2SAT 93
[2017-07-06] MEDS ORDERED: QUEtiapine FUMARATE 25 MG TAB PO SCH (21:00)
--- NOTE | 2017-07-06 21:12 | HHI.PR ---
Addendum to Inpatient Note Addendum Reason: Additional Documentation Additional Information Responded to Halicat on Mr. Maguire. Subjective 62 yo male with history of emphysema, peripheral artery disease, hypertension, hyperlipidemia, recent bilateral pneumonia admitted due to erratic behavior, decreased sleep and nutritional intake for past 1 week along with paranoid ideations. This evening his dose of Seroquel was increased and had a controlled let down to the floor by RN due to lightheadedness. On MD arrival he "feels fine " and is wondering why everyone seems so concerned. Denies chest pain, shortness of breath, abdominal pain, any other symptoms. Objective VS: Initial BP 71/40. Manual check by MD was 100/60. HR 71. SpO2 93% on 2 L NC. Gen: WDWN elderly white male resting in bed, irritable but in NAD. No diaphoresis. CV: NRRR, normal S1/S2, no murmur Lungs: Diminished breath sounds but poor respiratory effort. No distress, no tachypnea. Abd: Soft, NDNT MSK: No cyanosis or edema A/P 62 yo male with COPD, HTN, admitted for psychosis now with resolved lightheadedness likely due to orthostatic hypotension and increased seroquel dose - fall precautions - check CBC, CMP, troponin to r/o other metabolic or cardiac etiology - O2 PRN - Routine VS - 1 L NS bolus IV sdw Chan Ndiaye MD Jul 06, 2017 21:12
[2017-07-06] MEDS ORDERED: SODIUM CHLOR 0.9% 1000 ML INJ 1,000 ML IV ONE (21:45)
[2017-07-06 22:09] LABS: BASOPHIL % 0.5 % (0.0-2.0); EOSINOPHIL # 0.3 TH/MM3 (0-0.4); EOSINOPHIL % 5.4 % (0.0-4.0); HEMOGLOBIN 12.4 GM/DL (13.0-17.0); LYMPH % 12.8 % (9.0-44.0); LYMPHOCYTE # 0.7 TH/MM3 (1.0-4.8); MEAN CELL VOLUME 100.4 FL (80.0-100.0); MEAN CORPUSCULAR HEMOGLOBIN 34.6 PG (27.0-34.0); MEAN CORPUSCULAR HGB CONC 34.5 % (32.0-36.0); MEAN PLATELET VOLUME 6.7 FL (7.0-11.0); MONO % 13.1 % (0.0-8.0); MONOCYTE # 0.8 TH/MM3 (0-0.9); NEUT % 68.2 % (16.0-70.0); PLATELET COUNT 227 TH/MM3 (150-450); RED BLOOD COUNT 3.58 MIL/MM3 (4.50-5.90); RED CELL DISTRIBUTION WIDTH 14.6 % (11.6-17.2); WHITE BLOOD COUNT 5.8 TH/MM3 (4.0-11.0)
[2017-07-06 22:18] VITALS: BP 116/64
[2017-07-06 22:34] LABS: ALBUMIN 2.8 GM/DL (3.4-5.0); ALKALINE PHOSPHATASE 50 U/L (45-117); ALT (GPT) 14 U/L (12-78); AST (GOT) 6 U/L (15-37); BICARBONATE 26.9 MEQ/L (21.0-32.0); BLOOD UREA NITROGEN 15 MG/DL (7-18); CALCIUM 8.6 MG/DL (8.5-10.1); CHLORIDE 106 MEQ/L (98-107); CREATININE 1.01 MG/DL (0.60-1.30); GLOMERULAR FILTRATION RATE 75 ML/MIN (>89); GLUCOSE,RANDOM 80 MG/DL (74-106); SODIUM (NA) 140 MEQ/L (136-145); TOTAL BILIRUBIN ADULT 0.6 MG/DL (0.2-1.0); TOTAL PROTEIN 5.5 GM/DL (6.4-8.2)
[2017-07-07 05:04] VITALS: BP 153/72; PULSE 99; RESP 18; TEMP 97.4; O2SAT 94
[2017-07-07] MEDS: LISINOPRIL 20 MG TAB PO SCH (08:07)
[2017-07-07] MEDS: CLOPIDOGREL 75 MG TAB PO SCH (08:08)
[2017-07-07] MEDS: PRAVASTATIN SOD 40 MG TAB PO SCH (08:08)
--- NOTE | 2017-07-07 08:28 | HHI.PR ---
Subjective Remarks in no acute distress. no new complaints. denies pain. Objective Vitals Vital Signs Date Time Temp Pulse Resp B/P (MAP) Pulse Ox O2 Delivery O2 Flow Rate FiO2 07/07/17 07:20 07/07/17 05:04 97.4 99 18 153/72 (99) 94 07/06/17 22:18 116/64 (81) 07/06/17 20:45 93 2.00 07/06/17 20:15 71/40 (50) 07/06/17 18:05 98.2 85 18 121/65 (83) 96 I/O 07/06/17 07/06/17 07/06/17 07/07/17 07/07/17 07/07/17 07:00 15:00 23:00 07:00 15:00 23:00 Intake Total 240 ml 480 ml 2080 ml 240 ml 0 ml Balance 240 ml 480 ml 2080 ml 240 ml 0 ml Intake Oral 240 ml 480 ml 1080 ml 240 ml IV Total 1000 ml 0 ml # Voids 2 3 2 Result Diagram: 07/06/17219907/06/172199 Imaging Last Impressions Head CT 07/04/17154 Signed Impressions: Service Date/Time: Tuesday, July 04, 2017 02:51 - CONCLUSION: 1. No acute intracranial abnormalities. Negrito Nation MD Chest X-Ray 07/04/17154 Signed Impressions: Service Date/Time: Tuesday, July 04, 2017 02:24 - CONCLUSION: 1. No focal consolidation or effusion. Calcified granuloma right lower lobe. Negrito Nation MD Objective Remarks GENERAL: This is a well-nourished, well-developed patient, in no apparent distress. CARDIOVASCULAR: Regular rate and regular rhythm without murmurs, gallops, or rubs. RESPIRATORY: Clear to auscultation. Breath sounds equal bilaterally. No wheezes , rales, or rhonchi. GASTROINTESTINAL: Abdomen soft, non-tender, nondistended. Normal, active bowel sounds MUSCULOSKELETAL: Extremities without clubbing, cyanosis, or edema. NEURO: Awake and alert. Medications and IVs Inpatient Medications Acetaminophen (Tylenol) 650 mg Q4H PRN PO Pain 1-5 or Temp >101F; Start at 18:00 Al Hydrox/Mg Hydrox/Simethicone (Mag-Al Plus Susp Liq) 30 ml Q6H PRN PO DYSPEPSIA; Start 07/04/17 at 18:00 Albuterol/ Ipratropium (Duoneb Neb) 1 ampule Q4HR NEB PRN NEB SOB/WHEEZING; Start 07/05/17 at 10:00 Clopidogrel Bisulfate (Plavix) 75 mg DAILY PO Last administered on 07/07/17at 08: 08; Start 07/05/17 at 09:00 Labetalol HCl (Trandate Inj) 10 mg ONCE ONCE IV PUSH Last administered on 07/04at 07:33; Start 07/04/17 at 07:00; Stop 07/04/17 at 07:01; Status DC Lisinopril (Prinivil) 20 mg DAILY PO Last administered on 07/07/17at 08:07; Start 07/05/17 at 09:00 Lorazepam (Ativan) 1 mg ONCE ONCE PO Last administered on 07/04/17at 09:21; Start 07/04/17 at 09:15; Stop 07/04/17 at 09:16; Status DC Magnesium Hydroxide (Milk Of Magnesia Liq) 30 ml DAILY PRN PO CONSTIPATION; Start 07/04/17 at 18:00 Olanzapine (ZyPREXA INJ) 10 mg ONCE ONCE IM ; Start 07/06/17 at 07:30; Stop 07/06 at 07:31; Status DC Patient Own Medication PT OWN MED: PERFOROMIST (FORMOTEROL)... BID INH ; Start 07/05/17 at 12:15; Stop 07/05/17 at 12:15; Status DC Pravastatin Sodium (Pravachol) 40 mg DAILY PO Last administered on 07/07/17at 08: 08; Start 07/05/17 at 09:00 Quetiapine Fumarate (SEROquel) 75 mg HS PO Last administered on 07/06/17at 20:13 ; Start 07/06/17 at 21:00 Sodium Chloride 1,000 ml @ 0 mls/hr BOLUS ONCE IV Last administered on at 21:45; Start 07/06/17 at 21:45; Stop 07/06/17 at 21:46; Status DC A/P Problem List: (1) Brief psychotic disorder ICD Code: F23 - Brief psychotic disorder (2) COPD (chronic obstructive pulmonary disease) with emphysema ICD Code: J43.9 - Emphysema, unspecified (3) PAD (peripheral artery disease) ICD Code: I73.9 - Peripheral vascular disease, unspecified (4) Hypertension ICD Code: I10 - Essential (primary) hypertension (5) Hyperlipidemia ICD Code: E78.5 - Hyperlipidemia, unspecified Assessment and Plan Brief psychotic disorder: - Plan per psychiatry COPD with emphysema/recent pneumonia: No exacerbation. Chest x-ray personally reviewed. Calcified granuloma but no acute disease. Patient recently completed treatment for pneumonia. Appear to be stable from respiratory standpoint. - neb treatment as needed Peripheral artery disease: - Continue Plavix and statin Hypertension: - Continue lisinopril DVT PPx: Ambulation Ramon Lyman MD Jul 07, 2017 08:28
[2017-07-07] MEDS ORDERED: QUEtiapine FUMARATE 25 MG TAB PO SCH (09:00)
[2017-07-07] MEDS: ARIPiprazole 10 MG TAB PO SCH (09:00)
--- NOTE | 2017-07-07 10:53 | HHI.PYPN ---
Subjective Remarks Patient is seen for follow-up, chart reviewed. Discussion is a step reported that patient had Halicat last evening due to low blood pressure after taking her evening dose of Seroquel and was provided 1 bolus of normal saline and blood pressure improved. Patient was found in room noted to be hyperverbal today, with elated mood, some pressured speech and reports his mood is "better" . Patient reports that he is "clearer" and feels that his thoughts are slowing down. When asked about his last evening patient states that he had felt dizzy has a taking his medications but also states that he had not been eating or drinking yesterday afternoon the plans on improving that today. Review of Systems Except as stated in HPI: all other systems reviewed are Neg Mental Status Examination Appearance: Appropriate, Well dressed/well groomed Consciousness: Alert Orientation: x4 Motor Activity: Normal gait Speech: Pressured Language: Adequate Fund of Knowledge: Adequate Attention and Concentration: Easily Distracted Memory: Unremarkable Mood: Irritable Affect: Labile Thought Process & Associations: Intact, Tangential Thought Content: Bizarre thinking Hallucination Type: None Delusion Type: Bizarre, Paranoid, Other Suicidal Ideation: No Suicidal Plan: No Suicidal Intention: No Homicidal Ideation: No Homicidal Plan: No Homicidal Intention: No Insight: Poor Judgment: Poor Results Labs Labs reviewed Test 07/06/17 21:55 07/06/17 22:00 Troponin I LESS THAN 0.02 NG/ML White Blood Count 5.8 TH/MM3 Red Blood Count 3.58 MIL/MM3 Hemoglobin 12.4 GM/DL Hematocrit 36.0 % Mean Corpuscular Volume 100.4 FL Mean Corpuscular Hemoglobin 34.6 PG Mean Corpuscular Hemoglobin Concent 34.5 % Red Cell Distribution Width 14.6 % Platelet Count 227 TH/MM3 Mean Platelet Volume 6.7 FL Neutrophils (%) (Auto) 68.2 % Lymphocytes (%) (Auto) 12.8 % Monocytes (%) (Auto) 13.1 % Eosinophils (%) (Auto) 5.4 % Basophils (%) (Auto) 0.5 % Neutrophils # (Auto) 4.0 TH/MM3 Lymphocytes # (Auto) 0.7 TH/MM3 Monocytes # (Auto) 0.8 TH/MM3 Eosinophils # (Auto) 0.3 TH/MM3 Basophils # (Auto) 0.0 TH/MM3 CBC Comment DIFF FINAL Differential Comment Blood Urea Nitrogen 15 MG/DL Creatinine 1.01 MG/DL Random Glucose 80 MG/DL Total Protein 5.5 GM/DL Albumin 2.8 GM/DL Calcium Level 8.6 MG/DL Alkaline Phosphatase 50 U/L Aspartate Amino Transf (AST/SGOT) 6 U/L Alanine Aminotransferase (ALT/SGPT) 14 U/L Total Bilirubin 0.6 MG/DL Sodium Level 140 MEQ/L Potassium Level 3.7 MEQ/L Chloride Level 106 MEQ/L Carbon Dioxide Level 26.9 MEQ/L Anion Gap 7 MEQ/L Estimat Glomerular Filtration Rate 75 ML/MIN Vitals/IOs Vital Signs Date Time Temp Pulse Resp B/P (MAP) Pulse Ox O2 Delivery O2 Flow Rate FiO2 07/07/17 09:33 Nasal Cannula 3.00 07/07/17 07:20 07/07/17 05:04 97.4 99 18 94 Intake and Output 07/07/17 07/07/17 07/08/17 08:00 16:00 00:00 Intake Total 240 ml 480 ml Balance 240 ml 480 ml Assessment & Plan Problem List: (1) Brief psychotic disorder ICD Codes: F23 - Brief psychotic disorder Assessment & Plan Patient at this time continues to be noted to be with labile mood, hyperverbal, pressured speech, elated mood. Will discontinue quetiapine as patient had was a orthostatic hypotension which patient has required bolus of saline IV. We'll start aripiprazole 10 mg by mouth daily for mood stabilization as well as less propensity for orthostatic hypotension as side effect. Continue monitoring his behavior. Continue recommendations as per primary medical team. Discharge planning in progress Justification for Cont. Inpt. At risk for further decompensation if at lower level of care Discharge Planning Back to his residence upon stabilization Felipe Silveira MD Jul 07, 2017 10:53
[2017-07-07] MEDS: RESP: ALBUTEROL 2.5 MG/IPRATROPIUM 0.5 MG NEB (PRN) NEB ×2 (14:23→17:14)
--- NOTE | 2017-07-07 15:46 | PD.TTN ---
Patient Problems 1. Discharge planning 2. Medication compliance 3. Knowledge deficit 4. Lack of coping skills Progress Toward Goals Provider Present: Dr. Jose Luis Silveira Provider Input: 07/07/2017; Patient medication is being adjusted Nurse(s) Input: 07/07/2017; patient requrires direction with his medication Psychiatric Counselors Present: NIGHAT Monge Psych Therapist Input: 07/07/2017; patient requires redirection and coaching with mood; will be returning home with family when stable. Group Spec/RT/OT/ZAMUDIO Present: Louis Rothman OT Group Spec/RT/OT/ZAMUDIO Input: 07/07/2017; patient has been unable to tolerate groups Documentation Scribe: NIGHAT Monge Sandra LMHC Jul 07, 2017 15:46
[2017-07-07 17:51] VITALS: BP 115/66; PULSE 88; RESP 18; TEMP 97.3; O2SAT 95
[2017-07-07] MEDS ORDERED: traZODone HCL 50 MG TAB PO PRN (21:00)
[2017-07-08 06:00] VITALS: BP 183/88; PULSE 97; RESP 19; TEMP 98.4; O2SAT 92
[2017-07-08] MEDS: PRAVASTATIN SOD 40 MG TAB PO SCH ×2 (08:03→09:22)
[2017-07-08] MEDS: CLOPIDOGREL 75 MG TAB PO SCH ×2 (08:03→09:22)
[2017-07-08] MEDS: ARIPiprazole 10 MG TAB PO SCH ×2 (08:03→09:22)
[2017-07-08] MEDS: LISINOPRIL 20 MG TAB PO SCH (08:04)
--- NOTE | 2017-07-08 09:15 | HHI.PR ---
Subjective Remarks in no acute distress. walking in the hallway. denies pain. d/w the RN. Objective Vitals Vital Signs Date Time Temp Pulse Resp B/P (MAP) Pulse Ox O2 Delivery O2 Flow Rate FiO2 07/08/17 06:00 98.4 97 19 183/88 (119) 92 07/07/17 18:15 07/07/17 17:51 97.3 88 18 115/66 (82) 95 07/07/17 09:33 Nasal Cannula 3.00 I/O 07/07/17 07/07/17 07/07/17 07/08/17 07/08/17 07/08/17 07:00 15:00 23:00 07:00 15:00 23:00 Intake Total 240 ml 960 ml 720 ml 240 ml Balance 240 ml 960 ml 720 ml 240 ml Intake Oral 240 ml 960 ml 720 ml 240 ml IV Total 0 ml # Voids 2 2 2 Result Diagram: 07/06/17219907/06/172199 Imaging Last Impressions Head CT 07/04/17154 Signed Impressions: Service Date/Time: Tuesday, July 04, 2017 02:51 - CONCLUSION: 1. No acute intracranial abnormalities. Negrito Nation MD Chest X-Ray 07/04/17154 Signed Impressions: Service Date/Time: Tuesday, July 04, 2017 02:24 - CONCLUSION: 1. No focal consolidation or effusion. Calcified granuloma right lower lobe. Negrito Nation MD Objective Remarks GENERAL: This is a well-nourished, well-developed patient, in no apparent distress. CARDIOVASCULAR: Regular rate and regular rhythm without murmurs, gallops, or rubs. RESPIRATORY: Clear to auscultation. Breath sounds equal bilaterally. No wheezes , rales, or rhonchi. GASTROINTESTINAL: Abdomen soft, non-tender, nondistended. Normal, active bowel sounds MUSCULOSKELETAL: Extremities without clubbing, cyanosis, or edema. NEURO: Awake and alert. Medications and IVs Inpatient Medications Acetaminophen (Tylenol) 650 mg Q4H PRN PO Pain 1-5 or Temp >101F; Start at 18:00 Al Hydrox/Mg Hydrox/Simethicone (Mag-Al Plus Susp Liq) 30 ml Q6H PRN PO DYSPEPSIA; Start 07/04/17 at 18:00 Albuterol/ Ipratropium (Duoneb Neb) 1 ampule Q4HR NEB PRN NEB SOB/WHEEZING Last administered on 07/07/17at 17:14; Start 07/05/17 at 10:00 Aripiprazole (Abilify) 10 mg DAILY PO Last administered on 07/07/17at 09:00; Start 07/07/17 at 09:00 Clopidogrel Bisulfate (Plavix) 75 mg DAILY PO Last administered on 07/07/17at 08: 08; Start 07/05/17 at 09:00 Labetalol HCl (Trandate Inj) 10 mg ONCE ONCE IV PUSH Last administered on 07/04at 07:33; Start 07/04/17 at 07:00; Stop 07/04/17 at 07:01; Status DC Lisinopril (Prinivil) 20 mg DAILY PO Last administered on 07/08/17at 08:04; Start 07/05/17 at 09:00 Lorazepam (Ativan) 1 mg ONCE ONCE PO Last administered on 07/04/17at 09:21; Start 07/04/17 at 09:15; Stop 07/04/17 at 09:16; Status DC Magnesium Hydroxide (Milk Of Magnesia Liq) 30 ml DAILY PRN PO CONSTIPATION; Start 07/04/17 at 18:00 Olanzapine (ZyPREXA INJ) 10 mg ONCE ONCE IM ; Start 07/06/17 at 07:30; Stop 07/06 at 07:31; Status DC Patient Own Medication PT OWN MED: PERFOROMIST (FORMOTEROL)... BID INH ; Start 07/05/17 at 12:15; Stop 07/05/17 at 12:15; Status DC Pravastatin Sodium (Pravachol) 40 mg DAILY PO Last administered on 07/07/17at 08: 08; Start 07/05/17 at 09:00 Quetiapine Fumarate (SEROquel) 75 mg HS PO Last administered on 07/06/17at 20:13 ; Start 07/06/17 at 21:00; Stop 07/07/17 at 08:55; Status DC Sodium Chloride 1,000 ml @ 0 mls/hr BOLUS ONCE IV Last administered on at 21:45; Start 07/06/17 at 21:45; Stop 07/06/17 at 21:46; Status DC Trazodone HCl (Desyrel) 50 mg HS PRN PO INSOMNIA; Start 07/07/17 at 21:00 A/P Problem List: (1) Brief psychotic disorder ICD Code: F23 - Brief psychotic disorder (2) COPD (chronic obstructive pulmonary disease) with emphysema ICD Code: J43.9 - Emphysema, unspecified (3) PAD (peripheral artery disease) ICD Code: I73.9 - Peripheral vascular disease, unspecified (4) Hypertension ICD Code: I10 - Essential (primary) hypertension (5) Hyperlipidemia ICD Code: E78.5 - Hyperlipidemia, unspecified Assessment and Plan Brief psychotic disorder: - Plan per psychiatry COPD with emphysema/recent pneumonia: No exacerbation. Chest x-ray personally reviewed. Calcified granuloma but no acute disease. Patient recently completed treatment for pneumonia. Appear to be stable from respiratory standpoint. - neb treatment as needed Peripheral artery disease: - Continue Plavix and statin Hypertension: - Continue lisinopril DVT PPx: Ambulation Ramon Lyman MD Jul 08, 2017 09:15
--- NOTE | 2017-07-08 11:20 | HHI.PYPN ---
Subjective Remarks Patient was seen today for psychiatric reevaluation. Case discussed and seen with nurse in charge. Chart was reviewed. On psychiatric evaluation patient is very hyperverbal, with moments of verbal incontinence and pressured speech, with marked grandiose delusions, and prominent paranoia, he says that he has hired an thousand driveway attendant for [employer], he is is pending millions of dollars in this driveway attendant. He says that he is willing to give $50,000 to the nurse and $100, 000 to the doctors to be released from the psychiatric unit and he has 23 millions of dollars in the [facility] that he can withdrawal right now. The patient has been pacing in the unit, talking constantly by phone, very disruptive. Patient yesterday had to be medicated with ETO due to increased agitation and hostile behavior. He has been compliant with his medication with extra redirection, no significant side effects. Mental Status Examination Appearance: Appropriate, Well dressed/well groomed Consciousness: Alert Orientation: x4 Motor Activity: Normal gait Speech: Pressured Language: Adequate Fund of Knowledge: Adequate Attention and Concentration: Easily Distracted Memory: Unremarkable Mood: Irritable Affect: Labile Thought Process & Associations: Intact, Tangential Thought Content: Bizarre thinking Hallucination Type: None Delusion Type: Bizarre, Paranoid, Other (gradiosity ) Suicidal Ideation: No Suicidal Plan: No Suicidal Intention: No Homicidal Ideation: No Homicidal Plan: No Homicidal Intention: No Insight: Poor Judgment: Poor Results Vitals/IOs Vital Signs Date Time Temp Pulse Resp B/P (MAP) Pulse Ox O2 Delivery O2 Flow Rate FiO2 07/08/17 06:00 98.4 97 19 183/88 (119) 92 07/07/17 09:33 Nasal Cannula 3.00 Intake and Output 07/08/17 07/08/17 07/09/17 08:00 16:00 00:00 Intake Total 240 ml Balance 240 ml Assessment & Plan Problem List: (1) Brief psychotic disorder ICD Codes: F23 - Brief psychotic disorder Assessment & Plan: The patient is acutely manic, with increased pressured speech, hyperactivity, goal-directed activities, paranoia, increased self esteem. I will increase the Abilify to 15 mg daily. Might consider starting a mood stabilizer. Vital signs reviewed. Patient is a little bit hypertensive, 183/88, this was discussed with rounding hospitalist. Lbs reviewed. Assessment & Plan Estimated LOS: days Justification for Cont. Inpt. Patient is acutely manic/psychotic Galileo Moulton MD Jul 08, 2017 11:20
[2017-07-08 11:45] VITALS: O2SAT 91
[2017-07-08 19:07] VITALS: BP 125/66; PULSE 91; RESP 18; TEMP 97.8; O2SAT 94
[2017-07-09 05:56] VITALS: BP 161/80; PULSE 91; RESP 17; TEMP 97.2
[2017-07-09] MEDS: RESP: ALBUTEROL 2.5 MG/IPRATROPIUM 0.5 MG NEB (PRN) NEB ×3 (09:16→23:44)
[2017-07-09] MEDS: ARIPiprazole 15 MG TAB PO SCH (09:25)
[2017-07-09] MEDS: PRAVASTATIN SOD 40 MG TAB PO SCH (09:26)
[2017-07-09] MEDS: CLOPIDOGREL 75 MG TAB PO SCH (09:26)
[2017-07-09] MEDS: LISINOPRIL 20 MG TAB PO SCH (09:26)
--- NOTE | 2017-07-09 10:27 | HHI.PR ---
Subjective Remarks in no acute distress. had some sob earlier. no other new complaints. d/w the RN. Objective Vitals Vital Signs Date Time Temp Pulse Resp B/P (MAP) Pulse Ox O2 Delivery O2 Flow Rate FiO2 07/09/17 05:56 97.2 91 17 161/80 (107) 07/08/17 19:07 97.8 91 18 125/66 (85) 94 07/08/17 11:45 91 21 I/O 07/08/17 07/08/17 07/08/17 07/09/17 07/09/17 07/09/17 07:00 15:00 23:00 07:00 15:00 23:00 Intake Total 240 ml 0 ml Balance 240 ml 0 ml Intake Oral 240 ml IV Total 0 ml # Voids 2 Result Diagram: 07/06/17219907/06/172199 Imaging Last Impressions Head CT 07/04/17154 Signed Impressions: Service Date/Time: Tuesday, July 04, 2017 02:51 - CONCLUSION: 1. No acute intracranial abnormalities. Negrito Nation MD Chest X-Ray 07/04/17154 Signed Impressions: Service Date/Time: Tuesday, July 04, 2017 02:24 - CONCLUSION: 1. No focal consolidation or effusion. Calcified granuloma right lower lobe. Negrito Nation MD Objective Remarks GENERAL: This is a well-nourished, well-developed patient, in no apparent distress. CARDIOVASCULAR: Regular rate and regular rhythm without murmurs, gallops, or rubs. RESPIRATORY: Clear to auscultation. Breath sounds equal bilaterally. No wheezes , rales, or rhonchi. GASTROINTESTINAL: Abdomen soft, non-tender, nondistended. Normal, active bowel sounds MUSCULOSKELETAL: Extremities without clubbing, cyanosis, or edema. NEURO: Awake and alert. Medications and IVs Inpatient Medications Acetaminophen (Tylenol) 650 mg Q4H PRN PO Pain 1-5 or Temp >101F; Start at 18:00 Al Hydrox/Mg Hydrox/Simethicone (Mag-Al Plus Susp Liq) 30 ml Q6H PRN PO DYSPEPSIA; Start 07/04/17 at 18:00 Albuterol/ Ipratropium (Duoneb Neb) 1 ampule Q4HR NEB PRN NEB SOB/WHEEZING Last administered on 07/07/17 17:14; Start 07/05/17 at 10:00 Aripiprazole (Abilify) 15 mg DAILY PO Last administered on 07/09/17at 09:25; Start 07/09/17 at 09:00 Clopidogrel Bisulfate (Plavix) 75 mg DAILY PO Last administered on 07/09/17 09: 26; Start 07/05/17 at 09:00 Labetalol HCl (Trandate Inj) 10 mg ONCE ONCE IV PUSH Last administered on 07/04at 07:33; Start 07/04/17 at 07:00; Stop 07/04/17 at 07:01; Status DC Lisinopril (Prinivil) 20 mg DAILY PO Last administered on 07/09/17 09:26; Start 07/05/17 at 09:00 Lorazepam (Ativan) 1 mg ONCE ONCE PO Last administered on 07/04/17at 09:21; Start 07/04/17 at 09:15; Stop 07/04/17 at 09:16; Status DC Magnesium Hydroxide (Milk Of Magnesia Liq) 30 ml DAILY PRN PO CONSTIPATION Last administered on 07/09/17at 10:03; Start 07/04/17 at 18:00 Olanzapine (ZyPREXA INJ) 10 mg ONCE ONCE IM ; Start 07/06/17 at 07:30; Stop 07/06 at 07:31; Status DC Patient Own Medication PT OWN MED: PERFOROMIST (FORMOTEROL)... BID INH ; Start 07/05/17 at 12:15; Stop 07/05/17 at 12:15; Status DC Pravastatin Sodium (Pravachol) 40 mg DAILY PO Last administered on 07/09/17at 09: 26; Start 07/05/17 at 09:00 Quetiapine Fumarate (SEROquel) 75 mg HS PO Last administered on 07/06/17at 20:13 ; Start 07/06/17 at 21:00; Stop 07/07/17 at 08:55; Status DC Sodium Chloride 1,000 ml @ 0 mls/hr BOLUS ONCE IV Last administered on at 21:45; Start 07/06/17 at 21:45; Stop 07/06/17 at 21:46; Status DC Trazodone HCl (Desyrel) 50 mg HS PRN PO INSOMNIA; Start 07/07/17 at 21:00 A/P Problem List: (1) Brief psychotic disorder ICD Code: F23 - Brief psychotic disorder (2) COPD (chronic obstructive pulmonary disease) with emphysema ICD Code: J43.9 - Emphysema, unspecified (3) PAD (peripheral artery disease) ICD Code: I73.9 - Peripheral vascular disease, unspecified (4) Hypertension ICD Code: I10 - Essential (primary) hypertension (5) Hyperlipidemia ICD Code: E78.5 - Hyperlipidemia, unspecified Assessment and Plan Brief psychotic disorder: - Plan per psychiatry COPD with emphysema/recent pneumonia: No exacerbation. Chest x-ray personally reviewed. Calcified granuloma but no acute disease. Patient recently completed treatment for pneumonia. Appear to be stable from respiratory standpoint. - neb treatment as needed Peripheral artery disease: - Continue Plavix and statin Hypertension: - Continue lisinopril DVT PPx: Ambulation Ramon Lyman MD Jul 09, 2017 10:27
--- NOTE | 2017-07-09 14:46 | HHI.PYPN ---
Subjective Remarks Patient was seen and case discussed with nursing. Patient is pressured with a circumstantial thought process. He claims no history of a psychotic disorder or bipolar disorder. Appears less grandiose today. He is eating and sleeping well. He is not irritable or elated. Denies suicidal or homicidal ideation intent or plan. Tolerating medications well Mental Status Examination Appearance: Appropriate, Well dressed/well groomed Consciousness: Alert Orientation: x4 Motor Activity: Normal gait Speech: Pressured Language: Adequate Fund of Knowledge: Adequate Attention and Concentration: Easily Distracted Memory: Unremarkable Mood: Irritable Affect: Appropriate Thought Process & Associations: Intact, Circumstantial Thought Content: Bizarre thinking Hallucination Type: None Delusion Type: Bizarre, Paranoid, Other (gradiosity ) Suicidal Ideation: No Suicidal Plan: No Suicidal Intention: No Homicidal Ideation: No Homicidal Plan: No Homicidal Intention: No Insight: Poor Judgment: Poor Results Vitals/IOs Vital Signs Date Time Temp Pulse Resp B/P (MAP) Pulse Ox O2 Delivery O2 Flow Rate FiO2 07/09/17 05:56 97.2 91 17 161/80 (107) 07/08/17 19:07 94 07/08/17 11:45 21 07/07/17 09:33 Nasal Cannula 3.00 Assessment & Plan Problem List: (1) Brief psychotic disorder ICD Codes: F23 - Brief psychotic disorder Assessment & Plan Continue current treatment plan Justification for Cont. Inpt. Patient would decompensate in a less restrictive setting Luís Goodrich DO Jul 09, 2017 14:46
[2017-07-09 17:30] VITALS: BP 116/64; PULSE 83; RESP 17; TEMP 98.4
[2017-07-09 23:33] VITALS: O2SAT 93
[2017-07-10 05:42] VITALS: BP 148/66; PULSE 75; RESP 20; TEMP 99.1; O2SAT 96
[2017-07-10 06:28] VITALS: O2SAT 98
[2017-07-10] MEDS: RESP: ALBUTEROL 2.5 MG/IPRATROPIUM 0.5 MG NEB (PRN) NEB ×2 (06:41→18:39)
[2017-07-10] MEDS: ARIPiprazole 15 MG TAB PO SCH (09:17)
[2017-07-10] MEDS: LISINOPRIL 20 MG TAB PO SCH (09:17)
[2017-07-10] MEDS: PRAVASTATIN SOD 40 MG TAB PO SCH (09:17)
[2017-07-10] MEDS: CLOPIDOGREL 75 MG TAB PO SCH (09:18)
[2017-07-10] MEDS ORDERED: ERGOCALCIFEROL (VIT D2) 50,000 UNIT CAP PO ONE (14:15)
--- NOTE | 2017-07-10 15:13 | HHI.PR ---
Subjective Remarks Follow up on patient with COPD, HTN, HLD. Patient seen and examined. Patient has no complaints at present. Breathing without any difficulty. Denies any cough or dyspnea. Denies any chest pain. No fever or chills. Objective Vitals Vital Signs Date Time Temp Pulse Resp B/P (MAP) Pulse Ox O2 Delivery O2 Flow Rate FiO2 07/10/17 06:28 98 21 07/10/17 05:42 99.1 75 20 148/66 (93) 96 07/09/17 23:33 93 21 07/09/17 22:15 21 07/09/17 17:30 98.4 83 17 116/64 (81) Result Diagram: 07/06/17219907/06/172199 Imaging Last Impressions Head CT 07/04/17154 Signed Impressions: Service Date/Time: Tuesday, July 04, 2017 02:51 - CONCLUSION: 1. No acute intracranial abnormalities. Negrito Nation MD Chest X-Ray 07/04/17154 Signed Impressions: Service Date/Time: Tuesday, July 04, 2017 02:24 - CONCLUSION: 1. No focal consolidation or effusion. Calcified granuloma right lower lobe. Negrito Nation MD Objective Remarks GENERAL: This is a well-nourished, well-developed male patient, in no apparent distress. Awake and alert. SKIN: Cool and dry. HEAD: Atraumatic. Normocephalic. EYES:Extraocular motions intact. No scleral icterus. No injection or drainage. ENT: Nose without drainage. Airway patent. MMM. NECK: Trachea midline. CARDIOVASCULAR: Regular rate and rhythm without murmurs, gallops, or rubs. RESPIRATORY: Clear to auscultation. Breath sounds equal bilaterally. No wheezes , rales, or rhonchi. GASTROINTESTINAL: Abdomen soft, non-tender, nondistended. MUSCULOSKELETAL: Extremities without clubbing, cyanosis, or edema. NEUROLOGICAL: Awake and alert. Able to move all extremities spontaneously. No focal neurologic finding appreciated. Normal speech. Medications and IVs Current Medications Medications (Trade) Dose Ordered Sig/Lizette Route Start Time Stop Time Status Last Admin (Tylenol) 650 mg Q4H PRN PO 07/04/17 18:00 (Milk Of Magnesia Liq) 30 ml DAILY PRN PO 07/04/17 18:00 07/09/17 10:03 (Mag-Al Plus Susp Liq) 30 ml Q6H PRN PO 07/04/17 18:00 (Plavix) 75 mg DAILY PO 07/05/17 09:00 07/10/17 09:18 (Prinivil) 20 mg DAILY PO 07/05/17 09:00 07/10/17 09:17 (Pravachol) 40 mg DAILY PO 07/05/17 09:00 07/10/17 09:17 (Duoneb Neb) 1 ampule Q4HR NEB PRN NEB 07/05/17 10:00 07/10/17 06:41 (Desyrel) 50 mg HS PRN PO 07/07/17 21:00 (Abilify) 15 mg DAILY PO 07/09/17 09:00 07/10/17 09:17 (Vitamin D3) 2,000 units DAILY PO 07/11/17 09:00 A/P Problem List: (1) Brief psychotic disorder ICD Code: F23 - Brief psychotic disorder (2) COPD (chronic obstructive pulmonary disease) with emphysema ICD Code: J43.9 - Emphysema, unspecified (3) PAD (peripheral artery disease) ICD Code: I73.9 - Peripheral vascular disease, unspecified (4) Hypertension ICD Code: I10 - Essential (primary) hypertension (5) Hyperlipidemia ICD Code: E78.5 - Hyperlipidemia, unspecified Assessment and Plan 62-year-old male admitted to the psychiatric unit for bizarre behavior, aggression toward , paranoia along with some manic-like symptoms. Hospitalist service following for medical management of COPD, hypertension, and peripheral vascular disease. Brief psychotic disorder: - Plan per psychiatry COPD with emphysema/recent pneumonia: No exacerbation. Calcified granuloma but no acute disease. Patient recently completed treatment for pneumonia. Appears to be stable from respiratory standpoint. - Duo nebs treatment as needed Peripheral artery disease: - Continue Plavix and statin Hypertension: - Continue lisinopril Vitamin D deficiency - Vitamin D level 9.7 - Give 50,000 units Ergocalciferol once, then Vitamin D3 2000 units daily - Will need to repeat Vitamin D level in 3 mos with PCP as outpatient DVT PPx: Ambulation Patient appears stable medically from hospitalist standpoint. Will sign off. Please reconsult if needed. Bethany Damian Jul 10, 2017 15:13
[2017-07-10 16:01] VITALS: BP 171/81; PULSE 56; RESP 18; TEMP 97.8; O2SAT 97
[2017-07-10] MEDS ORDERED: LISI-515 PO (17:29)
[2017-07-10] MEDS ORDERED: PRAV40TA2 PO (17:29)
[2017-07-10] MEDS ORDERED: PLAV75TA29 PO (17:29)
[2017-07-10] MEDS ORDERED: CHOL1000 PO (17:29)
[2017-07-10] MEDS ORDERED: ARIP1TAB13 PO (17:29)
--- NOTE | 2017-07-10 17:30 | HHI.DS ---
Psychiatry Discharge Summary Inpatient Psychiatric care?: Yes Advance Directive: No Reason Not Provided: pt do not have advance directive at this time, Mental Health AdvanceDirective: No Health Care Proxy: Yes Admission Admission Date Jul 04, 2017 at 17:56 Admission Diagnosis: (1) Brief psychotic disorder ICD Code: F23 - Brief psychotic disorder Brief History Patient is a 62-year-old man, , domiciled with , retired, with no formal past psychiatric history, substance use history significant for marijuana use daily (irritable), was in a vacant past medical history of emphysema, peripheral artery disease, hypertension, hyperlipidemia, recent bilateral pneumonia was brought into the ED due to erratic behavior, decreased sleep and nutritional intake for past 1 week along with paranoid ideations, delusional and aggression toward in the context of recent treatment with prednisone for pneumonia which patient was admitted to the inpatient psychiatry unit for further evaluation and management. Patient was found lying in hospital bed noted to be tearful during interview some what tangential. Patient states that he had pneumonia prior to his hospitalization was on prednisone along with "sleeping pills" which she stopped 56 days ago but had been on this medication for some time but was unable to recall the name. Patient states that recently he has not been able to sleep ever since stopping the sleeping medications noted that his energy level has been "high" with no change in appetite, endorsing having had racing thoughts, and that he was " going too fast". Patient denies having pushed his yesterday as noted in the ED note, denies feeling paranoid denying any perceptual disturbances at this time. Patient noted to be somewhat labile with frequent episodes of crying when speaking about his children and perseverative on worrying about them. Patient was able to give more detailed due to his recent change in behavior. Patient at this time reports feeling "better" and that his energy has been less today. The patient is a 63 years old man, , domicile with in [place], patient denies previous psychiatric history, no previous psychiatric hospitalizations, no previous suicidal attempts, cannabis use disorder, he has a medical history of COPD, hypertension, hyperlipidemia, was recently admitted due to bilateral pneumonia and was discharged in his steroids and also antibiotics. Patient was admitted to psychiatry due to disorganized and psychotic behavior. Consulted to me for second opinion. On psychiatric evaluation I find the patient talking by phone having an argument with somebody about "legal issues". He is very irritable, stating that he has multiple millionaires friends that can assist him. He reports that there is no reason to retain him on the [place] act. Patient is disorganized, talkative, at times pressured and difficult to redirect. He has been intrusive in the unit, kind of restless, but no aggressive behavior displayed. Patient has been compliant with medications, no cynical side effects reported. He is completely oriented 3. Tobacco Use In Past 30 Days: No Tobacco Past 30 Days Alcohol Use: Never Hospital Course Patient is a 62-year-old man, , domiciled with , retired, with no formal past psychiatric history, substance use history significant for marijuana use daily (irritable), was in a vacant past medical history of emphysema, peripheral artery disease, hypertension, hyperlipidemia, recent bilateral pneumonia was brought into the ED due to erratic behavior, decreased sleep and nutritional intake for past 1 week along with paranoid ideations, delusional and aggression toward in the context of recent treatment with prednisone for pneumonia which patient was admitted to the inpatient psychiatry unit for further evaluation and management. Patient started on quetiapine 25mg twice a day and titrated to 25/75mg which had to be discontinued as patient had notable orthostatic hypotension and started subsequently on ariprapozole. He tolerated this well with no notable adverse drug reactions and titrated to 15mg PO daily. Patient was noted to have improvement of mood, decreased manic symptoms, no longer endorsing paranoia , grandiose delusions and no behavioral dyscontrol on the unit, denied and suicidal or homicidal ideation and endorsed being future oriented. Upon discharge patient stated that she was feeling good, reported feeling support from his family motivation to continue recommendations; denied any SI, HI, perceptual disturbances or delusions. Weighing the acute, chronic, and protective factors and based on the available evidence, I screenplay writer to a reasonable degree of medical certainty that the patient is at low imminent risk of harm to self or others from a mental illness as defined under the [place] act and her level of function is adequate for planned level of outpatient care. He and his were counseled regarding warning signs for need to return to the psychiatric emergency room as part of a general safety plan. Patient advised to call 911 or go nearest ED in case of emergency. Patient and family agreed with plan. Results Blood Pressure 171 / 81 Vital Signs Date Time Temp Pulse Resp B/P (MAP) Pulse Ox O2 Delivery O2 Flow Rate FiO2 07/10/17 16:01 97.8 56 18 171/81 (111) 97 07/10/17 06:28 21 07/07/17 09:33 Nasal Cannula 3.00 Laboratory Results Test 07/05/17 06:23 Cholesterol Level 121 MG/DL (120-200) HDL Cholesterol 59.2 MG/DL (40.0-60.0) Hemoglobin A1c 5.6 % (4.3-6.0) LDL Cholesterol 49 MG/DL (0-99) Triglycerides Level 64 MG/DL (42-150) Summary of Procedures None Imaging Last Impressions Head CT 07/04/17154 Signed Impressions: Service Date/Time: Tuesday, July 04, 2017 02:51 - CONCLUSION: 1. No acute intracranial abnormalities. Negrito Nation MD Chest X-Ray 07/04/17154 Signed Impressions: Service Date/Time: Tuesday, July 04, 2017 02:24 - CONCLUSION: 1. No focal consolidation or effusion. Calcified granuloma right lower lobe. Negrito Nation MD Pending results at discharge: No Medications # of Antipsychotic meds at D/C: 1 Approp Antipsych med options 1 - Minimum of three failed multiple trials of monotherapy. 2 - Documented plan to taper to monotherapy due to previous use of multiple meds OR cross-taper in progress at D/C. 3 - Documentation of augmentation of Clozapine. 4 - Justification other than those listed in allowable values 1-3, document here : Discharge Discharge Date: Jul 10, 2017 Discharge Diagnosis: (1) Brief psychotic disorder ICD Code: F23 - Brief psychotic disorder Pt Condition on Discharge: Stable Discharge Disposition: Discharge Home Discharge Instructions Diet Instructions: As Tolerated, No Restrictions Activities you can perform: Regular-No Restrictions Scheduled Appointment: Private Psychiatrist Appointment Date: Jul 10, 2017 Discharge Time > 30 minutes Mental Status Examination Appearance: Appropriate, Well dressed/well groomed Consciousness: Alert Orientation: x4 Motor Activity: Normal gait Speech: Pressured Language: Adequate Fund of Knowledge: Adequate Attention and Concentration: Easily Distracted Memory: Unremarkable Mood: Appropriate Affect: Appropriate Thought Process & Associations: Intact Thought Content: Appropriate Hallucination Type: None Delusion Type: None Suicidal Ideation: No Suicidal Plan: No Suicidal Intention: No Homicidal Ideation: No Homicidal Plan: No Homicidal Intention: No Insight: Fair Judgment: Impulsive Discharge/Advance Care Plan Health Problems: (1) Brief psychotic disorder Goals to promote your health * To prevent worsening of your condition and complications * To maintain your health at the optimal level Directions to meet your goals Take your medications as prescribed Follow your dietary instruction Follow activity as directed Keep your appointments as scheduled Take your immunizations and boosters as scheduled If your symptoms worsen call your PCP, if no PCP go to Urgent Care Center or Emergency Room For 26/12 questions related to your inpatient stay or results of tests pending at discharge, please contact Dr. Felipe Silveira at Smoking is Dangerous to Your Health. Avoid second hand smoking Felipe Silveira MD Jul 10, 2017 17:30
[2017-07-11] MEDS ORDERED: CHOLECALCIFEROL (VIT D3) 1000 UNIT TAB PO SCH (09:00)
== END 2017-07-10 21:11 | disposition home or self-care (01) | DRG 885 ==
LOC: NEPE 00:53 → NEDA 17:56 → H4EA 19:05 → H270 07-08 14:15
PROVIDERS: ADMIT Student in an Organized Health Care Education/Training Program; ATTEND Student in an Organized Health Care Education/Training Program
DX: F23 Brief psychotic disorder (principal); J43.9 Emphysema, unspecified; I10 Essential (primary) hypertension; E78.5 Hyperlipidemia, unspecified; F12.90 Cannabis use, unspecified, uncomplicated; I73.9 Peripheral vascular disease, unspecified; M19.90 Unspecified osteoarthritis, unspecified site; Z96.642 Presence of left artificial hip joint; H91.90 Unspecified hearing loss, unspecified ear; E55.9 Vitamin D deficiency, unspecified; I95.1 Orthostatic hypotension; Z95.5 Presence of coronary angioplasty implant and graft; Z87.891 Personal history of nicotine dependence; Z91.410 Personal history of adult physical and sexual abuse
CPT/HCPCS: 70450; 71045; 80048; 80053; 80061; 80307; 81001; 82140; 82306; 82550; 82607; 83036; 83690; 83735; 84443; 84484; 85025; 85610; 85730; 93005; 94640; 94664; 96361; 96374; J7030